=== PATIENT | male | born 1945 | race Caucasian/White ===

== ENCOUNTER → 2017-07-10 | Day surgery (SDC) | payer MEDICARE ==
[~2017-07-10] VITALS: Ht 160 cm; Wt 69.4 kg
[~2017-07-10] MED LIST: ABILIFY; ACE325 PO; AMIT-108 PO; ARIP5TAB28 PO; CHOL200038 PO; CLO5 PO; CYCL-277 PO; CYCL10TA29 PO; DOCU-416 PO; EFFEXOR PO; FERR325C2 PO; FINA5TAB64 PO; FLUO-202 PO; FLUT16SP20 NS; GLUC-125 PO; LEVO25TA61 PO; LIDOCAINE/SOD BICARB 8.4% SYR ID ONE; MIR15 PO; MODA200T6 PO; MULT-804 PO; NORMOSOL R SOLN(*) 1000 ML BAG 1,000 ML IV PRN; OLAN10TA25 PO; OMEG500C5 PO; OMEP40CA48 PO; OXYC-854 PO; PROPOFOL EMUL(*) 10MG/ML 20 ML 20 ML ONE; SALSP; SIMV-49 PO; SUVO10TA PO; TAM4 PO; TAMS0.4C76 PO; TERA5CAP59 PO; VYVANSE PO; ZOL5 PO; ZOLP-358 PO; [UNRECOGNIZED DRUG - OTHER] NS
--- NOTE | 2017-07-10 07:25 | Post Operative Progress Note ---
Post Operative Progress Note Date: Jul 10, 2017 Time: 08:48 Surgeon: janet Anesthesia: dr yung Pre-Op Diagnosis: dysphagia Post-Op Diagnosis: hiatal hernia Procedure(s): egd MULUGETA FRYE MD Jul 10, 2017 07:25
--- NOTE | 2017-07-10 07:26 | Short(Outpt) Discharge Summary ---
Discharge Summary Reason for Hosp/Final Diag: (1) Dysphagia Hospital Course & Plan: hiatal hernia Departure Discharge to: Home Discharge Instructions Home Meds Reported Medications Fluoxetine Hcl (PROZAC) 20 Mg Capsule, 20 MG PO QDAY, CAPSULE 07/08/17 Olanzapine (OLANZAPINE) 10 Mg Tablet, 10 MG PO QDAY 07/08/17 Zolpidem Tartrate (ZOLPIDEM TARTRATE) 10 Mg Tablet, 1 TAB PO QHS, TAB 12/12/15 Cyclobenzaprine Hcl (CYCLOBENZAPRINE HCL) 10 Mg Tablet, 10 MG PO PRN Y for TIGHTNESS, #9 TAB 12/12/15 Cholecalciferol (Vitamin D3) (VITAMIN D3) 2,000 Unit Tablet, 2000 UNIT PO BID 12/12/15 Levothyroxine Sodium (LEVOTHYROXINE SODIUM) 25 Mcg Tablet, 50 MCG PO QDAY 03/08/15 Modafinil (MODAFINIL) 200 Mg Tablet, 200 MG PO PRN 02/20/15 Omeprazole (OMEPRAZOLE) 40 Mg Capsule.dr, 40 MG PO QDAY TAKE ONE TABLET BY MOUTH ONCE A DAY 10/30/12 [place]-3 Fatty Acids (FISH OIL) 500 Mg Capsule.dr, 1200 MG PO DAILY 10/30/12 Terazosin Hcl (TERAZOSIN HCL) 5 Mg Capsule, 5 MG PO QHS 10/30/12 Finasteride (PROSCAR) 5 Mg Tablet, 5 MG PO QDAY 10/30/12 Multivitamins (Multiple Vitamin) 1 Tab Tablet, 1 TAB PO DAILY 05/25/07 Clonazepam (Klonopin) 0.5 Mg Tab, 1 MG PO PRN Y for ANXIETY TAKE UP TO TWO TIMES PER DAY ONLY NEEDED FOR ANXIETY 05/25/07 Discontinued Reported Medications Ferrous Sulfate (IRON) 325 Mg Capsule.er, 27 MG PO QDAY 12/12/15 Simvastatin (SIMVASTATIN) 20 Mg Tablet, 20 MG PO HS 10/30/12 Diet: Regular Activity: As Tolerated MULUGETA FRYE MD Jul 10, 2017 07:26
[2017-07-10 08:23] VITALS: BP 148/79
[2017-07-10 08:48] VITALS: BP 93/48
[2017-07-10 09:19] VITALS: BP 148/66
[2017-07-10 09:42] VITALS: BP 124/95
[2017-07-10 09:44] VITALS: BP 149/100
--- NOTE | 2017-07-10 16:55 | OPERATIVE REPORT 1 ---
EVENT DATE: July 10, 2017 SURGEON: Reymundo Li MD ANESTHESIOLOGIST: Ryder Hunter MD ANESTHESIA: Sedation. PREOPERATIVE DIAGNOSIS Dysphagia. POSTOPERATIVE DIAGNOSIS Small hiatal hernia. PROCEDURE PERFORMED Esophagogastroduodenoscopy. DESCRIPTION OF PROCEDURE Patient was placed in the left lateral decubitus position and given intravenous sedation. Flexible gastroscope was inserted and advanced into the esophagus. I tried to take a look in the posterior pharynx area. I could not identify any abnormalities. We entered the esophagus without any difficulty. The esophagus distended nicely, and we were able to advance the scope without any difficulty. GE junction was at 38 cm, distinct. No ulceration, inflammation. No narrowing. It was not tight. We fell through that without any resistance. It seemed to open nicely with air insufflation. Stomach was empty. Passed through the pylorus and second and third portions of the duodenum which were normal. Duodenal bulb was normal. Pylorus was normal. Antrum was normal. Body of stomach appeared to be normal. Scope was retroflexed. There were no fundic lesions. He had a small hiatal hernia. Scope was then slowly withdrawn and, again, care was taken to look in the proximal esophagus, but no narrowings or abnormalities were noted. [facility]
== END ==
LOC: OR 00:19
PROVIDERS: ATTEND Surgery
DX: K44.9 Diaphragmatic hernia without obstruction or gangrene (principal)
CPT/HCPCS: 43235; J2704